=== PATIENT | female | born 1955 | race Two or more races ===

== ENCOUNTER → 2020-01-20 | Day surgery (SDC) | payer OTHER ==
--- NOTE | 2020-01-20 23:52 | OP ---
DATE OF OPERATION: 01/20/2020 PREOPERATIVE DIAGNOSIS: Abnormal left mammography. POSTOPERATIVE DIAGNOSIS: Abnormal left mammography. PROCEDURE: Left stereotactic needle biopsy with clip. SURGEON: Lashell Nguyen MD. ANESTHESIA: Local. COMPLICATIONS: None. This was a sterile procedure. INDICATION FOR PROCEDURE: Patient underwent routine screening mammography and noted a new cluster microcalcification in the upper outer left breast 1 o'clock location. My recommendation was a needle biopsy for definitive diagnosis. The procedure was discussed with her. PROCEDURE IN DETAIL: Patient brought to [facility] in [place], laid prone on the OR table. Using the lateral approach, calcifications in the upper outer left breast was identified. A sterile prep was obtained. A target was chosen. There was a positive stroke margin. Using Betadine and 1% lidocaine, a [employer] device was used to take several cores from this area. Cores were sent for a specimen radiograph that showed calcification within them. Usual calcification protocol was followed. a T-shaped clip was deployed in the area. Hemostasis assured with direct pressure. Steri-Strips were used to close the incision. She tolerated procedure well, left the breast imaging center in good condition. LASHELL NGUYEN M.D. [id number] MTDD
--- NOTE | 2020-01-21 16:12 | PATH ---
Surgical Pathology Report Patient Name: TRAVIS WAGNER [facility]. Rec. #: [id number] /Age/Gender: 1955 (Age: 64) / F Account: [id number] Location: [facility] Taken: 01/20/2020 Received: 01/20/2020 Reported: 01/21/2020 Physicians: Lashell Santana M.D. Specimen(s) Received LEFT BREAST SPECIMEN WITH CALCIFICATIONS Clinical History Mammographic findings: Microcalcification, suspicious Final Diagnosis BREAST, LEFT, CALCIFICATIONS, STEREOTACTIC BIOPSY: BENIGN BREAST TISSUE SHOWING PROLIFERATIVE FIBROCYSTIC CHANGES INCLUDING USUAL DUCTAL HYPERPLASIA (UDH) AND CYSTIC APOCRINE METAPLASIA WITH ASSOCIATED CALCIFICATIONS. Electronically Signed Chelsea Cash M.D. Gross Description Received in formalin labeled "left breast with calcifications," is a 2.4 x 2.0 x 0.3 cm aggregate of multiple celestin-yellow, irregular to cylindrical portions of fibroadipose tissue. The formalin is filtered and the specimen is entirely submitted in one cassette. Time to formalin fixation: 13 minutes Total formalin fixation time: Approximately 6 hours. /01/20/2020 [facility]01/20/2020
== END | disposition home or self-care (01) ==
LOC: FMAMMOTONE 11:51
PROVIDERS: ATTEND Surgery
PROC: 0HBU3ZX Excision of Left Breast, Percutaneous Approach, Diagnostic (ICD-10-PCS; principal; 2020-01-20)
DX: N60.12 Diffuse cystic mastopathy of left breast (principal); N60.82 Other benign mammary dysplasias of left breast; N64.89 Other specified disorders of breast; R92.8 Other abnormal and inconclusive findings on diagnostic imaging of breast
CPT/HCPCS: 19081; 76098-TC-FY; 87899; 88305-TC; A4648